=== PATIENT | female | born 1995 | race Caucasian/White ===

== ENCOUNTER 2016-12-16 15:05 | Emergency (ER) | payer SELFPAY ==
[2016-12-16 15:16] VITALS: BP 145/88
[2016-12-16 15:53] LABS: Bilirubin,Urine NEG (Negative); Blood,Urine NEG (Negative); Ketones,Urine NEG (Negative); Leukocyte Esterase,Urine NEG (Negative); Mucus,Urine FEW /HPF; Nitrite,Urine NEG (Negative); Protein,Urine <15 mg/dL mg/dL (Negative); RBC,Urine < 1.0 /HPF (0.0-6.0); Urobilinogen,Urine < 2.0 mg/dL (<2.0); WBC,Urine < 1.0 /HPF (0.0-6.0)
== END 2016-12-16 16:55 | disposition left against medical advice (07) ==
LOC: ED 15:05
DX: R10.30 Lower abdominal pain, unspecified (principal); H92.01 Otalgia, right ear; F17.200 Nicotine dependence, unspecified, uncomplicated; Z53.21 Procedure and treatment not carried out due to patient leaving prior to being seen by health care provider
CPT/HCPCS: 81001; 81025

== ENCOUNTER 2019-07-06 19:48 | Outpatient (CLI) | payer MEDICAID ==
[2019-07-06 21:00] VITALS: BP 116/58
[2019-07-06 22:13] LABS: Bacteria,Urine 1+ /HPF (Negative); Bilirubin,Urine NEG (Negative); Blood,Urine NEG (Negative); Color,Urine Yellow (Yellow); Mucus,Urine 2+ /HPF; Protein,Urine <15 mg/dL mg/dL (Negative); Urobilinogen,Urine < 2.0 mg/dL (<2.0)
[2019-07-06] MEDS ORDERED: LACTATED RINGERS 1,000 ML ONE (22:59)
[2019-07-06] MEDS ORDERED: LACTATED RINGERS 1,000 ML IV SCH (23:45)
== END 2019-07-07 01:19 | disposition home or self-care (01) ==
LOC: TRG 19:48
PROVIDERS: ATTEND Obstetrics & Gynecology
DX: O26.892 Other specified pregnancy related conditions, second trimester (principal); R10.9 Unspecified abdominal pain; Z3A.25 25 weeks gestation of pregnancy
CPT/HCPCS: 81001; 96361; 96365; J0690; J7120; 96360

== ENCOUNTER 2019-07-23 20:30 | Outpatient (CLI) | payer MEDICAID ==
[2019-07-23] MEDS ORDERED: LACTATED RINGERS 1,000 ML IV ONE (20:36)
[2019-07-23 21:53] LABS: Bacteria,Urine 3+ /HPF (Negative); Bilirubin,Urine NEG (Negative); Blood,Urine NEG (Negative); Color,Urine Yellow (Yellow); Mucus,Urine 1+ /HPF; Protein,Urine <15 mg/dL mg/dL (Negative); Urobilinogen,Urine < 2.0 mg/dL (<2.0)
[2019-07-23 23:04] VITALS: BP 126/88
== END 2019-07-23 22:40 | disposition home or self-care (01) ==
LOC: TRG 20:30
PROVIDERS: ATTEND Obstetrics & Gynecology
DX: O26.893 Other specified pregnancy related conditions, third trimester (principal); R10.2 Pelvic and perineal pain
CPT/HCPCS: 81001; 87086

== ENCOUNTER 2019-09-27 20:34 | Outpatient (CLI) | payer MEDICAID ==
[2019-09-27 22:32] VITALS: BP 123/86
== END 2019-09-27 22:36 | disposition home or self-care (01) ==
LOC: TRG 20:34 → APU 20:36 → TRG 22:36
PROVIDERS: ATTEND Obstetrics & Gynecology
DX: O26.893 Other specified pregnancy related conditions, third trimester (principal); Z3A.37 37 weeks gestation of pregnancy
CPT/HCPCS: 59025

== ENCOUNTER 2019-09-29 19:06 | Observation (INO) | payer MEDICAID ==
[2019-09-29] MEDS ORDERED: FLUCONAZOLE 100 MG TAB PO SCH (22:00)
--- NOTE | 2019-09-29 23:52 | Ultrasound Report ---
Obstetrical ultrasound with biophysical profile. HISTORY: Evaluate RICKI. FINDINGS: A single viable intrauterine in the cephalic position has heart tones of 16 0 bpm. The amniotic fluid index is normal at 15.7 cm. Biophysical profile is normal at 8/8. IMPRESSION: 1. Amniotic fluid index 15.7 cm. 2. Normal biophysical profile. Signer Name: Thomas West MD Signed: 09/29/2019 11:48 PM Workstation Name: [id number]
[2019-09-30] MEDS ORDERED: VITAMIN D PO SCH (08:00)
[2019-09-30 08:03] VITALS: BP 124/79
--- NOTE | 2019-09-30 09:29 | History and Physical Report ---
History of Present Illness Date of examination: 09/29/19 Date of admission: 09/29/19 19:47 Chief complaint: S; "I think my water broke" History of present illness: 24 y/o presents with c/o questionable SROM. Pt initiated pnc at [facility] at 8 wks gestation. She is being co managed by [facility] for maternal obesity. 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 IOL scheduled at [facility] on 10/11/19 for maternal obesity. 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 Family/Genetic History: none Social history: no significant social history - Obstetrical History Expected Date of Delivery: 10/18/19 Actual Gestation: 37 Week(s) 3 Day(s) : 1 Para: 0 Hx # Term Pregnancies: 0 Number of Pregnancies: 0 Spontaneous Abortions: 0 Induced : 0 Number of Living Children: 0 Medications and Allergies Allergies Allergy/AdvReac Type Severity Reaction Status Date / Time No Known Allergies Allergy Unverified 06/20/14 17:52 Home Medications Medication Instructions Recorded Confirmed Last Taken Type Pnv Plus Multivit Tab 1 tab PO QDAY 07/06/19 07/23/19 07/22/19 21:00 History Vitamin D (Nf) 1 tab PO WMHS 07/06/19 07/23/19 07/22/19 21:00 History Active Meds: Active Medications Miscellaneous Medication (Vitamin D (Nf)) 1 tab PO WMHS DWAYNE Multivitamins/Iron/Calcium ( Vitamin) 1 each PO DAILY DWAYNE Review of Systems Constitutional: weight gain Eyes: deferred Ears, nose, mouth and throat: deferred Breasts: normal Genitourinary: normal appearance, vaginal discharge Rectal Exam: deferred - Vital Signs Vital signs: Vital Signs Pulse BP 105 H 143/88 09/29/19 19:31 09/29/19 19:31 Temp Pulse Resp BP Pulse Ox 98.1 F 74 16 124/79 98 09/30/19 08:05 09/30/19 08:05 09/30/19 08:05 09/30/19 08:05 09/30/19 04:07 - Physical Exam Breasts: Positive: normal Cardiovascular: Regular rate Abdomen: Positive: normal appearance, soft, other (gravid) Vulva: both: normal Vagina: Positive: normal moisture Uterus: Positive: enlarged, normal contour Anus/Rectum: Positive: normal perianal skin Extremities: Positive: normal - Obstetrical FHR: category 1 Uterine Contraction Monitor Mode: External Cervical Dilatation: 1 Cervical Effacement Percentage: 50 station: -3 Uterine Contraction Frequency (min): irreg Uterine Contraction Pattern: Irregular Uterine Tone Measurement Phase: Resting Uterine Contraction Intensity: Mild Results All other labs normal. Assessment and Plan O: Nitrazine neg; Neg pooling of fluid + Vag d/c A: IUP@ 38.5 wks Maternal obesity Questionable SROM + Vag tj CAT FHT I p: Admit for 23 hour obs Continue monitoring US for RICKI AND BPP Diflucan for + vag infec POC agrees with plan - Patient Problems (1) Term Current Visit: Yes Status: Acute
[2019-09-30] MEDS ORDERED: PNV PRENATAL PLUS MULTIVIT PO SCH (10:00)
[2019-09-30] MEDS ORDERED: PRENATAL VIT27-FE FUMARATE-FOLIC ACID VIT TAB PO SCH (10:00)
--- NOTE | 2019-09-30 12:47 | Event Note ---
Date: 09/30/19 S: Pt in semi-hopper's position with partner at bedside. Reports +FMs but denies leaking fluid or UCs at this time. Her care is co-managed w/[facility] secondary to obesity. O: FHR baseline 130, moderate variability, + accels, no decels Speculum exam: no pooling present SVE 250/-3/Intact OBUS done 09/29/19: RICKI 15.7, BPP 8/8 A: 24yo G 1 P 0 at 37w3d Category I FHR SROM ruled-out No active labor P: Discharge to home today Follow-up if still leaking fluid, having ctxs less than 5 mins apart, vaginal bleeding or decreased FM IOL for Obesity based on [facility] recommendation at [facility] scheduled 10/11/19 @ 8:30am Keep re-scheduled [facility] appt next week Keep appt at [facility] on 10/03/19
--- NOTE | 2019-09-30 12:51 | Discharge Summary ---
Providers - Providers Date of Admission: 09/29/19 19:47 Date of discharge: 09/30/19 Attending physician: TONI HELLER MD Primary care physician: TONI HELLER MD Hospitalization Reason for admission: IUP at term, other (Leaking fluid) Discharge diagnosis: other (IUP at term undelivered) Condition at discharge: Stable Disposition: DC-01 TO HOME OR SELFCARE - Discharge Diagnoses (1) 37 weeks gestation of Status: Acute (2) Vaginal leukorrhea Status: Acute Plan - Provider Discharge Summary Activity: routine Diet: routine Instructions: routine Additional instructions: [] Smoking cessation referral if applicable(refer to patient education folder for contact #) [] Refer to [facility]'s [facility] Booklet Call your doctor immediately for: * Contractions less than 5 minutes apart * Leaking vaginal fluid * Vaginal bleeding * Decreased movement * Severe persistent headache * Shortness of breath * Reddened, hot, painful area to leg or breast - Follow up plan Follow up: TONI HELLER MD [Primary Care Provider] - 3 Days (Follow-up at [facility] in 3 days ) Forms: [facility] Discharge Summary
== END 2019-09-30 12:30 | disposition home or self-care (01) ==
LOC: TRG 19:06 → APU 19:17 → TRG 19:47 → LD 19:47
PROVIDERS: ADMIT Obstetrics & Gynecology; ATTEND Obstetrics & Gynecology
DX: O34.73 Maternal care for abnormality of vulva and perineum, third trimester (principal); N89.8 Other specified noninflammatory disorders of vagina; O99.213 Obesity complicating pregnancy, third trimester; E66.9 Obesity, unspecified; Z3A.38 38 weeks gestation of pregnancy; Z68.38 Body mass index [BMI] 38.0-38.9, adult
CPT/HCPCS: 76815; 76819; G0378

== ENCOUNTER 2019-10-05 23:36 | Inpatient (IN) | payer MEDICAID ==
[2019-10-06] MEDS ORDERED: MINERAL OIL 30 ML ORAL LIQD PO PRN (00:02)
[2019-10-06] MEDS ORDERED: LIDOCAINE (2%) 20 MG/1 ML VIAL 20 ML MDV INFILTRATI ONE ×3 (00:02→03:20)
[2019-10-06] MEDS ORDERED: TERBUTALINE 1 MG/1 ML INJ IVP PRN (00:02)
[2019-10-06] MEDS ORDERED: ePHEDrine SULFATE 50 MG/1 ML INJ IV PRN ×2 (00:02→01:41)
[2019-10-06] MEDS ORDERED: BUTORPHANOL 2 MG/1 ML INJ IV PRN (00:02)
[2019-10-06] MEDS ORDERED: TERBUTALINE 1 MG/1 ML INJ SUB-Q PRN (00:02)
[2019-10-06] MEDS ORDERED: OXYTOCIN 20 UNIT/1000ML DRIP 20 UNITS/1,000 ML BAG IV SCH (01:00)
[2019-10-06] MEDS ORDERED: OXYTOCIN DRIP 30 UNITS/500 ML BAG IV SCH (01:00)
[2019-10-06 01:07] LABS: Hemoglobin 12.9 gm/dl (10.1-14.3); Mean Corpuscular HGB Conc 34 % (30-34); Mean Corpuscular Volume 84 fl (79-97); Platelet Count 312 K/mm3 (140-440); Red Blood Count 4.53 M/mm3 (3.65-5.03); Red Cell Distribution Width 14.3 % (13.2-15.2)
[2019-10-06] MEDS ORDERED: DEXMEDETOMIDINE 200 MCG/2 ML VIAL IV ONE (01:08)
[2019-10-06] MEDS: LACTATED RINGERS 1,000 ML IV SCH ×2 (01:15→03:40)
[2019-10-06] MEDS ORDERED: NALOXONE 2 MG/2 ML INJ IV PRN (01:41)
[2019-10-06] MEDS ORDERED: fentaNYL-BUPIV 2 MCG/ML-0.125% 200 MCG/100 ML BAG EPIDURAL SCH (02:00)
[2019-10-06] MEDS ORDERED: WITCH HAZEL/ GLYCERIN PAD TP PRN (03:23)
[2019-10-06] MEDS ORDERED: diphenhydrAMINE 25 MG CAP PO PRN (03:23)
--- NOTE | 2019-10-06 03:30 | History and Physical Report ---
History of Present Illness Date of examination: 10/06/19 Date of admission: 10/06/2019 Chief complaint: Intense Labor Pains History of present illness: Early entry to care, co-managed with [facility] due to maternal obesity. course complicated by nausea and vomiting, Vitamin D Deficiency, a abnormal 1hour GTT; followed by a normal 3hour GTT. and a known Hx of HSV II. 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 Family/Genetic History: hypertension Social history: no significant social history, - Obstetrical History Expected Date of Delivery: 10/18/19 Actual Gestation: 38 Week(s) 2 Day(s) : 1 Medications and Allergies Allergies Allergy/AdvReac Type Severity Reaction Status Date / Time No Known Allergies Allergy Unverified 06/20/14 17:52 Home Medications Medication Instructions Recorded Confirmed Last Taken Type No Known Home Medications [No 10/03/19 10/03/19 Unknown History Reported Home Medications] Active Meds: Active Medications Acetaminophen/Hydrocodone Bitart (Winters 5/325) 2 each PO Q6H PRN PRN Reason: Pain, Moderate (4-6) Bisacodyl (Dulcolax) 10 mg KS BID PRN PRN Reason: Constipation Butorphanol Tartrate (Stadol) 2 mg IV Q2H PRN PRN Reason: Pain , Severe (7-10) Diphenhydramine HCl (Benadryl) 25 mg PO Q6H PRN PRN Reason: Itching Ephedrine Sulfate (Ephedrine Sulfate) 10 mg IV Q2M PRN PRN Reason: Hypotension Oxytocin/Sodium Chloride (Pitocin/Ns 20 Unit/1000ml Drip) 20 units in 1,000 mls @ 125 mls/hr IV DIRECT DWAYNE Oxytocin/Sodium Chloride (Pitocin/Ns 30 Unit/500ml) 30 units in 500 mls @ 1 mls/hr IV TITR DWAYNE; Protocol Lactated Ringer's (Lactated Ringers) 1,000 mls @ 125 mls/hr IV DIRECT DWAYNE Fentanyl/Bupivacaine/Sodium Chlor (Fentanyl-Bupiv 2 Mcg/Ml-0.125%) 200 mcg in 100 mls @ 12 mls/hr EPIDURAL TITR DWAYNE; Protocol Ibuprofen (Ibuprofen) 600 mg PO Q6H DWAYNE Lidocaine (Xylocaine 2%) 20 ml INFILTRATI ONCE ONE Stop: 10/06/19 03:21 Mineral Oil (Mineral Oil) 30 ml PO QHS PRN PRN Reason: Constipation Multivitamins/Iron/Calcium ( Vitamin) 1 each PO QDAY DWAYNE Naloxone HCl (Naloxone) 0.2 mg IV Q5M PRN PRN Reason: Respiratory sedation Sodium Chloride (Sodium Chloride Flush Syringe 10 Ml) 10 ml IV PRN NR Terbutaline Sulfate (Brethine) 0.25 mg SUB-Q ONCE PRN PRN Reason: Hyperstimulation/Hypertonicity Terbutaline Sulfate (Brethine) 0.25 mg IVP ONCE PRN PRN Reason: Hyperstimulation/Hypertonicity Witch Karen/Glycerin (Tucks Pad) 1 each TP PRN PRN PRN Reason: Hemorrhoid/cleansing/soothing Review of Systems All systems: negative - Vital Signs Vital signs: Vital Signs Pulse Pulse Ox 76 99 10/06/19 00:35 10/06/19 00:35 Temp Pulse Resp BP Pulse Ox 98.0 F 90 137/66 100 10/06/19 01:00 10/06/19 03:24 10/06/19 03:18 10/06/19 03:24 - Physical Exam Breasts: Positive: normal Cardiovascular: Regular rate Lungs: Positive: Clear to auscultation, Normal air movement Abdomen: Positive: normal appearance, soft, normal bowel sounds Genitourinary (Female): Positive: normal external genitalia, normal perenium Vagina: Positive: normal moisture Uterus: Positive: enlarged Anus/Rectum: Positive: normal perianal skin Extremities: Positive: normal - Obstetrical FHR: category 1 Uterine Contraction Monitor Mode: External Cervical Dilatation: 10 (moderate amount of clear fluid upon AROM at 0257) Cervical Effacement Percentage: 100 station: 0 Uterine Contraction Pattern: Regular Uterine Tone Measurement Phase: Resting Uterine Contraction Intensity: Moderate Results Result Diagrams: 10/06/19 00:10 Abnormal lab results 10/06/19 Range/Units 00:10 WBC 13.9 H (4.5-11.0) K/mm3 All other labs normal. Assessment and Plan A: IUP @ 38 2/7 Weeks Category I Tracing Active Labor GBS Negative P: Admit to L&D per Routine Orders AROM Anticipate
--- NOTE | 2019-10-06 03:39 | Procedure Note ---
OB Delivery Note - Delivery Date of Delivery: 10/06/19 (0308) Surgeon: NORY NAVAS Estimated blood loss: 200cc - Vaginal Delivery presentation: vertex Delivery position: OP Intrapartum events: none Delivery induction: none Delivery augmentation: rupture of membranes Delivery monitor: external FHT, external uterine Route of delivery: Delivery placenta: spontaneous Delivery cord: 3 umbilical vessels Episiotomy: none Delivery laceration: none Anesthesia: epidural Delivery comments: of a live 5'10 female over a intact perineum from the OP position under epidural anesthesia with Apgars of 8 and 9 at 0308 on 10/06/2019. directly to maternal abd/chest, skin to skin contact. Spontaneous delivery of placenta complete and intact with Wong side presenting at 0310. Fundus is firm and midline located 5 below the U. Lochia is scant. Delayed cord clamping and cutting; Cord cut by the Father of the Baby. Placenta to pathology. - A at 1 minute: 8 at 5 minutes: 9 Infant Gender: Female (5'10)
--- NOTE | 2019-10-06 06:07 | Post Anesthesia Evaluation ---
- Post Anesthesia Evaluation Patient Participated: Yes Airway Patent: Yes Stable Respiratory Function: Yes Nausea/Vomiting: No Temp > 96.8F: Yes Pain Manageable: Yes Adequeate Hydration: Yes Anesthesia Complications: No Block Receding Appropriately: Yes Patient on Ventilator: No
[2019-10-06] MEDS: PRENATAL VIT27-FE FUMARATE-FOLIC ACID VIT TAB PO SCH (11:00)
[2019-10-06] MEDS: IBUPROFEN 600 MG TAB PO SCH ×3 (11:05→23:47)
[2019-10-06 13:22] LABS: Uric Acid 4.1 mg/dL (3.5-7.6)
[2019-10-06 17:58] LABS: Hematocrit 31.9 % (30.3-42.9); Hemoglobin 10.5 gm/dl (10.1-14.3)
[2019-10-06] MEDS: HYDROcodone/ACETAMINOPHEN 5-325 MG TAB PO PRN (19:55)
[2019-10-07] MEDS: IBUPROFEN 600 MG TAB PO SCH (06:00)
[2019-10-07] MEDS: HYDROcodone/ACETAMINOPHEN 5-325 MG TAB PO PRN (08:36)
[2019-10-07] MEDS: PRENATAL VIT27-FE FUMARATE-FOLIC ACID VIT TAB PO SCH (09:33)
--- NOTE | 2019-10-07 09:48 | Discharge Summary ---
Providers - Providers Date of Admission: 10/06/19 03:20 Date of discharge: 10/07/19 (1200) Attending physician: TERI GRIFFITHS Primary care physician: TERI GRIFFITHS Hospitalization Reason for admission: active labor, IUP at term Delivery: Episiotomy: none Laceration: none Other procedures: none complications: other (anemia) Discharge diagnosis: IUP at term delivered [place] baby: female Hospital course: See admission H & P; OB delivery summary and PP progress notes Condition at discharge: Good Disposition: DC-01 TO HOME OR SELFCARE - Discharge Diagnoses (1) Status post normal vaginal delivery Status: Acute (2) Anemia Status: Acute Qualifiers: Anemia type: other cause Other causes of anemia: acute posthemorrhagic Qualified Code(s): D62 - Acute posthemorrhagic anemia (3) Elevated blood pressure reading Status: Acute Plan - Discharge Medications Prescriptions: Ferrous Sulfate [Feosol 325 MG tab] 325 mg PO QDAY 30 Days #30 tablet labetaloL [Labetalol 100mg TAB] 100 mg PO BID 14 Days #28 tablet Ibuprofen [Motrin 800 MG tab] 800 mg PO Q8H PRN 14 Days #42 tablet PRN Reason: Pain, Mild (1-3) - Provider Discharge Summary Activity: routine, no sex for 6 weeks, no heavy lifting 4 weeks, no strenuous exercise Diet: other (Iron rich diet) Instructions: routine Additional instructions: [] Smoking cessation referral if applicable(refer to patient education folder for contact #) [] Refer to [facility]'s [facility] Booklet Call your doctor immediately for: * Fever > 100.5 * Heavy vaginal bleeding ( >1 pad per hour) * Severe persistent headache * Shortness of breath * Reddened, hot, painful area to leg or breast * Follow up at office in 1 week for B/P check - Follow up plan Follow up: TERI GRIFFITHS MD [Primary Care Provider] - 7 Days
[2019-10-07] MEDS ORDERED: IBUPROFEN 800 MG TAB PO PRN (09:49)
[2019-10-07] MEDS ORDERED: FERROUS SULFATE 325 MG TAB PO SCH (10:00)
[2019-10-07 16:29] VITALS: BP 116/82
== END 2019-10-07 14:05 | disposition home or self-care (01) | DRG 775 ==
LOC: TRG 23:36 → APU 23:40 → LD 10-06 00:11 → TRG 10-06 03:20 → OB 10-06 06:03
PROVIDERS: ADMIT Obstetrics & Gynecology; ATTEND Obstetrics & Gynecology
PROC: 10E0XZZ Delivery of Products of Conception, External Approach (ICD-10-PCS; principal; 2019-10-06)
PROC: 10907ZC Drainage of Amniotic Fluid, Therapeutic from Products of Conception, Via Natural or Artificial Opening (ICD-10-PCS; 2019-10-06)
PROC: 3E0R3BZ Introduction of Anesthetic Agent into Spinal Canal, Percutaneous Approach (ICD-10-PCS; 2019-10-06)
PROC: 00HU33Z Insertion of Infusion Device into Spinal Canal, Percutaneous Approach (ICD-10-PCS; 2019-10-06)
DX: O99.214 Obesity complicating childbirth (principal); O90.81 Anemia of the puerperium; D62 Acute posthemorrhagic anemia; O26.893 Other specified pregnancy related conditions, third trimester; Z3A.38 38 weeks gestation of pregnancy; Z37.0 Single live birth; E66.01 Morbid (severe) obesity due to excess calories; R03.0 Elevated blood-pressure reading, without diagnosis of hypertension
CPT/HCPCS: 36415; 76815; 76819; 81001; 82565; 83615; 84450; 84460; 84550; 85014; 85018; 85027; 86850; 86900; 86901; 88307; G0378; J2590; J3490; J7120